=== PATIENT | female | born 1960 | race Caucasian/White ===

== ENCOUNTER → 2017-10-21 | Outpatient (CLI) | payer BC ==
[~2017-10-21] MED LIST: ACHD5005 PO; ASP325T PO; BUPR100T7 PO; CHOL10003 PO; CHOLESTEROL MED; CITA20TA12 PO; CPR500T PO; CYCL10TA9 PO; IBUP-792 PO; KETO-22 PO; NAPR-243 PO; PHEN37.555 PO; PRAV10TA PO; PREVASTATIN PO; SIMV20TA3 PO; TMSL.4C PO; VENL50TA PO; VNL37.5T PO; VNL75T PO
--- NOTE | 2017-10-21 14:32 | Diagnostic Imaging Report ---
EXAMINATION: Pelvic ultrasound. INDICATION: Pelvic pain There are no prior studies available for comparison. The uterus is not enlarged measuring 4.7 x 3.1 CM. The endometrial lining is not thickened measuring 3 MM. There is no focal mass involving the uterus to suggest a fibroid. The left ovary was identified and was unremarkable. There is good blood flow to the left ovary and there is no sign of torsion. The right ovary could not be visualized. There is no pelvic mass or free fluid collection noted. IMPRESSION: 1. There is no evidence for an acute pelvic abnormality. 2. The right ovary was not identified. Dictated by: Dictated on workstation # [id number]
== END ==
LOC: RAD 09:49
PROVIDERS: ATTEND Family Medicine
DX: R10.2 Pelvic and perineal pain (principal)
CPT/HCPCS: 76830; 76856

== ENCOUNTER → 2017-12-05 | Outpatient (CLI) | payer BC ==
[~2017-12-05] MED LIST changes: +CATHETER FLUSH 10 ML SYR IV PRN; +IOHEXOL 350 MG/ML 100 ML (OMNIPAQUE 350) VIAL IV ONE; +NS 250 ML (IVPB) BAG IV ONE
[2017-12-05 09:26] LABS: CREATININE SERUM 1.08 MG/DL (0.60-1.30)
--- NOTE | 2017-12-05 11:02 | Diagnostic Imaging Report ---
PROCEDURE: CT abdomen and pelvis with contrast. TECHNIQUE: Multiple contiguous axial images were obtained through the abdomen and pelvis after administration of intravenous contrast. INDICATION: Left lower quadrant pain for six months. COMPARISON: Comparison is made with prior noncontrast CT from 08/26/2012. FINDINGS: Lung bases demonstrates stable nodular density in the right lower lobe. The liver demonstrates generalized low density suggestive of hepatic steatosis. No discrete liver mass is seen. Gallbladder is unremarkable. The pancreas and spleen are unremarkable. No adrenal mass is detected. Kidneys are unremarkable apart from renal sinus cysts. Aorta is nonaneurysmal. The visualized small and large bowel loops are normal caliber. No obstruction is seen. No inflammatory process is detected. There is no free fluid or loculated collection. The uterus is unremarkable. Bladder is decompressed. IMPRESSION: Essentially unremarkable CT of the abdomen and pelvis. No acute abnormality is detected. Dictated by: Dictated on workstation # [id number]
== END ==
LOC: RAD 08:39
PROVIDERS: ATTEND Family Medicine
DX: R10.32 Left lower quadrant pain (principal)
CPT/HCPCS: 36415; 74177; 82565; 84520

== ENCOUNTER 2019-06-03 15:27 | Outpatient (RCR) | payer BC ==
[~2019-06-03 15:27] MED LIST changes: -CATHETER FLUSH 10 ML SYR IV PRN; -IOHEXOL 350 MG/ML 100 ML (OMNIPAQUE 350) VIAL IV ONE; -NS 250 ML (IVPB) BAG IV ONE
== END 2019-07-13 11:41 | disposition home or self-care (01) ==
PROVIDERS: ATTEND Family Medicine
DX: M25.512 Pain in left shoulder (principal); M25.812 Other specified joint disorders, left shoulder

== ENCOUNTER 2021-10-30 19:40 | Emergency (ER) | payer OTHER, BC ==
[~2021-10-30] VITALS: Ht 165 cm; Wt 95.3 kg
[2021-10-30 20:50] VITALS: BP 129/89
--- NOTE | 2021-10-30 20:56 | ED Upper Extremity ---
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 Uncertain of when her last tetanus vaccine was. Onset: just prior to arrival Severity: moderate Pain/Injury Location: right 2nd finger Method of Injury: direct blow Modifying Factors: Worse With Movement Allergies and Home Medications Allergies Coded Allergies: Penicillins (Verified Allergy, Unknown, 09/19/15) Patient Home Medication List Home Medication List Reviewed: Yes Bupropion HCl (Wellbutrin Sr) 100 Mg Tablet.er, 100 MG PO DAILY, (Reported) Entered as Reported by: SELAM PATEL on 09/18/15 1219 Citalopram Hydrobromide (Celexa) 20 Mg Tablet, 20 MG PO HS, (Reported) Entered as Reported by: TRES CAMERON on 06/24/14 1928 Pravastatin Sodium (Pravastatin Sodium) 10 Mg Tablet, 20 MG PO HS, (Reported) Entered as Reported by: TRES CAMERON on 06/24/14 193 Review of Systems Constitutional: see HPI EENTM: see HPI Respiratory: no symptoms reported Cardiovascular: no symptoms reported Genitourinary: no symptoms reported Musculoskeletal: no symptoms reported Skin: no symptoms reported Psychiatric/Neurological: No Symptoms Reported Past Vdppshl-Ogukyd-Hkzelu Hx Past Medical History High Cholesterol Reproductive Disorders: No Gastroesophageal Reflux Anxiety, Depression Physical Exam Vital Signs Capillary Refill : Height, Weight, BMI Height: 5'5.00" Weight: 210lbs. 3.2oz. 95.793698pd; 34.94 BMI Method:Stated General Appearance: WD/WN, no apparent distress Neck: non-tender, full range of motion Respiratory: no respiratory distress, no accessory muscle use Shoulder: normal inspection, non-tender Elbow/Forearm: normal inspection, non-tender Wrist: Yes normal inspection, Yes non-tender Hand: Right, laceration (There is a superficial laceration to the distal pad of the right pointer finger without active bleeding.) Neurologic/Psychiatric: alert, normal mood/affect, oriented x 3 Skin: normal color, warm/dry Departure Communication (Admissions) Area cleansed with chlorhexidine/saline solution then skin affix was applied. Then a Band-Aid. Impression Primary Impression: Fingertip laceration Disposition: 01 HOME, SELF-CARE Condition: Stable Departure-Patient Inst. Decision time for Depature: 20:55 Referrals: AMANDA RAMIREZ DO (PCP) Primary Care Physician Patient Instructions: Laceration Repair With Glue (DC) Add. Discharge Instructions: 1. Try to keep this dry as much as possible however some water running over it is okay. Just do not soak it in water. Return to ER for any concerns. JANNETTE SANDS APRN Oct 30, 2021 20:56
[2021-10-30] MEDS ORDERED: TETANUS,DIPTH,PERTUSS P/F (BOOSTRIX) 0.5 ML VIAL IM ONE (21:00)
== END 2021-10-30 21:20 | disposition home or self-care (01) ==
LOC: EDUNIT# 19:40 → ER 19:44
DX: S61.210A Laceration without foreign body of right index finger without damage to nail, initial encounter (principal); Z23 Encounter for immunization; W27.4XXA Contact with kitchen utensil, initial encounter
CPT/HCPCS: 90471; 90715; 99284

== ENCOUNTER 2022-07-02 00:43 | Emergency (ER) | payer BC ==
[~2022-07-02] VITALS: Ht 162.6 cm; Wt 95.3 kg
[2022-07-02] MEDS ORDERED: KETOROLAC 30 MG/ML VIAL IVP STA (01:06)
[2022-07-02 01:12] LABS: BASOPHILS % (AUTO) 0 % (0-10); EOSINOPHILS % (AUTO) 0 % (0-10); HEMATOCRIT 43 % (35-52); LYMPHOCYTES # (AUTO) 1.5 10^3/uL (1.0-4.0); LYMPHOCYTES % (AUTO) 14 % (12-44); MEAN CORPUSCULAR HEMOGLOBIN 30 pg (25-34); MEAN CORPUSCULAR HGB CONC 33 g/dL (32-36); MEAN CORPUSCULAR VOLUME 91 fL (80-99); MEAN PLATELET VOLUME 9.7 fL (9.0-12.2); MONOCYTES # (AUTO) 0.9 10^3/uL (0.0-1.0); MONOCYTES % (AUTO) 8 % (0-12); NEUTROPHILS # (AUTO) 8.5 10^3/uL (1.8-7.8); NEUTROPHILS % (AUTO) 77 % (42-75); PLATELET COUNT 238 10^3/uL (130-400); WHITE BLOOD COUNT 10.9 10^3/uL (4.3-11.0)
--- NOTE | 2022-07-02 01:12 | ED Abdominal Pain ---
General Chief Complaint: Abdominal/GI Problems Stated Complaint: POSS KIDNEY STONE,LEFT SIDE Source of Information: Patient History of Present Illness Date Seen by Provider: Jul 02, 2022 Time Seen by Provider: 00:53 Initial Comments PT ARRIVES VIA POV FROM HOME STATES SHE THINKS SHE IS PASSING A KIDNEY STONE C/O LEFT FLANK PAIN SINCE 1699, AND DIFFICULTY URINATING PAIN IS CONSTANT, NOTHING WORSENS OR IMPROVES PAIN HAS PRESSURE OVER BLADDER AND URGENCY, BUT IS UNABLE TO VOID NO NAUSEA/VOMITING NO FEVER HAS HISTORY OF KIDNEY STONES, NO INTERVENTIONS. STATES SHE HAS NOT SEEN A UROLOGIST, PASSED THEM ON HER OWN IN THE PAST PT TESTED + FOR INFLUENZA ON Friday06/30/22 AT [facility], RX FOR TAMIFLU GIVEN GOT HER FLU SHOT ON Friday06/27/22 PT HAS HAD COVID-19 VACCINE X 3. LAST ONE 07/2021. PCP:DR. RAMIREZ Allergies and Home Medications Allergies Coded Allergies: Penicillins (Verified Allergy, Unknown, 09/19/15) Patient Home Medication List Home Medication List Reviewed: Yes Bupropion HCl (Wellbutrin Sr) 100 Mg Tablet.er, 100 MG PO DAILY, (Reported) Entered as Reported by: SELAM PATEL on 09/18/15 1219 Ciprofloxacin HCl (Ciprofloxacin HCl) 500 Mg Tablet, 500 MG PO BID Prescribed by: SHAE SAMPSON on 07/02/22217 Citalopram Hydrobromide (Celexa) 20 Mg Tablet, 20 MG PO HS, (Reported) Entered as Reported by: TRES CAMERON on 06/24/14 1928 Hydrocodone/Acetaminophen (Hydrocodone-Acetamin 5-325 mg) 5 Mg-325 Mg Tablet, 1 EACH PO Q4-6 HOURS PRN for PAIN Prescribed by: SHAE SAMPSON on 07/02/22218 Ketorolac Tromethamine (Ketorolac Tromethamine) 10 Mg Tablet, 10 MG PO Q6H Prescribed by: SHAE SAMPSON on 07/02/22217 Ondansetron (Ondansetron Odt) 4 Mg Tab.rapdis, 4 MG PO Q4H Prescribed by: SHAE SAMPSON on 07/02/22217 Pravastatin Sodium (Pravastatin Sodium) 10 Mg Tablet, 20 MG PO HS, (Reported) Entered as Reported by: TRES CAMERON on 06/24/141932 Tamsulosin HCl (Flomax) 0.4 Mg Cap, 0.4 MG PO DAILY Prescribed by: SHAE SAMPSON on 07/02/22217 Review of Systems Review of Systems Constitutional: see HPI, malaise EENTM: See HPI, Nose Congestion Respiratory: Cough; Denies Shortness of Air Cardiovascular: No Symptoms Reported Gastrointestinal: See HPI, Abdominal Pain; Denies Nausea, Denies Vomiting Genitourinary: See HPI, Flank Pain, Urgency Musculoskeletal: see HPI Skin: no symptoms reported Psychiatric/Neurological: No Symptoms Reported Endocrine: No Symptoms Reported Hematologic/Lymphatic: No Symptoms Reported Past Duerzdi-Qufhdt-Wucyzz Hx Patient Social History Tobacco Use?: Yes Tobacco type used: Cigarettes Smoking Status: Former Smoker Substance use?: No Alcohol Use?: No Immunizations Up To Date First/Initial COVID19 Vaccinat: 12/29 Second COVID19 Vaccination Javid: 01/29 Third COVID19 Vaccination Date: 07/31 Past Medical History Surgeries: No Respiratory: No Cardiac: Yes High Cholesterol, Hypertension Neurological: No Reproductive Disorders: No VICE PRINCIPAL History: Menopausal Genitourinary: Yes Kidney Stones Gastrointestinal: Yes Gastroesophageal Reflux Musculoskeletal: No Endocrine: Yes Diabetes, Non-Insulin dep HEENT: No Cancer: No Psychosocial: Yes Anxiety, Depression Integumentary: No Blood Disorders: No Physical Exam Vital Signs Vital Signs - First Documented 07/02/22 00:53 Temp 36.5 Pulse 77 Resp 16 B/P (MAP) 146/83 (104) Pulse Ox 98 O2 Delivery Room Air Capillary Refill : Height/Weight/BMI Height: 5'5.00" Weight: 210lbs. 3.2oz. 95.173540ez; 35.00 BMI Method:Stated General Appearance: WD/WN, no apparent distress, obese HEENT: PERRL/EOMI Neck: normal inspection Respiratory: normal breath sounds, no respiratory distress, no accessory muscle use Cardiovascular: normal peripheral pulses, regular rate, rhythm, no murmur Gastrointestinal: soft, tenderness (MILD SUPRAPUBIC TENDERNESS. NO FLANK TENDERNESS. 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, no motor/sensory deficits, alert, normal mood/affect, oriented x 3 Skin: normal color, warm/dry; No rash Progress/Results/Core Measures Results/Orders Lab Results Laboratory Tests Test 07/02/22 00:59 07/02/22 01:03 Range/Units Urine Color YELLOW Urine Clarity CLEAR Urine pH 5.0 5-9 Urine Specific [place] >=1.030 1.016-1.022 Urine Protein NEGATIVE NEGATIVE Urine Glucose (UA) NEGATIVE NEGATIVE Urine Ketones NEGATIVE NEGATIVE Urine Nitrite NEGATIVE NEGATIVE Urine Bilirubin NEGATIVE NEGATIVE Urine Urobilinogen 0.2 < = 1.0 MG/DL Urine Leukocyte Esterase TRACE H NEGATIVE Urine RBC (Auto) 3+ H NEGATIVE Urine RBC 25-50 H /HPF Urine WBC 5-10 H /HPF Urine Crystals PRESENT H /LPF Urine Uric Acid Crystals MODERATE H /LPF Urine Bacteria TRACE /HPF Urine Casts NONE /LPF Urine Mucus MODERATE H /LPF Urine Culture Indicated YES White Blood Count 10.9 4.3-11.0 10^3/uL Red Blood Count 4.71 3.80-5.11 10^6/uL Hemoglobin 14.0 11.5-16.0 g/dL Hematocrit 43 35-52 % Mean Corpuscular Volume 91 80-99 fL Mean Corpuscular Hemoglobin 30 25-34 pg Mean Corpuscular Hemoglobin Concent 33 32-36 g/dL Red Cell Distribution Width 12.4 10.0-14.5 % Platelet Count 238 130-400 10^3/uL Mean Platelet Volume 9.7 9.0-12.2 fL Immature Granulocyte % (Auto) 0 % Neutrophils (%) (Auto) 77 H 42-75 % Lymphocytes (%) (Auto) 14 12-44 % Monocytes (%) (Auto) 8 0-12 % Eosinophils (%) (Auto) 0 0-10 % Basophils (%) (Auto) 0 0-10 % Neutrophils # (Auto) 8.5 H 1.8-7.8 10^3/uL Lymphocytes # (Auto) 1.5 1.0-4.0 10^3/uL Monocytes # (Auto) 0.9 0.0-1.0 10^3/uL Eosinophils # (Auto) 0.0 0.0-0.3 10^3/uL Basophils # (Auto) 0.0 0.0-0.1 10^3/uL Immature Granulocyte # (Auto) 0.0 0.0-0.1 10^3/uL Sodium Level 136 135-145 MMOL/L Potassium Level 3.9 3.6-5.0 MMOL/L Chloride Level 103 98-107 MMOL/L Carbon Dioxide Level 21 21-32 MMOL/L Anion Gap 12 5-14 MMOL/L Blood Urea Nitrogen 25 H 7-18 MG/DL Creatinine 1.19 0.60-1.30 MG/DL Estimat Glomerular Filtration Rate 52 BUN/Creatinine Ratio 21 Glucose Level 150 H 70-105 MG/DL Calcium Level 9.8 8.5-10.1 MG/DL Corrected Calcium 9.4 8.5-10.1 MG/DL Total Bilirubin 0.3 0.1-1.0 MG/DL Aspartate Amino Transf (AST/SGOT) 26 5-34 U/L Alanine Aminotransferase (ALT/SGPT) 28 0-55 U/L Alkaline Phosphatase 61 40-136 U/L Total Protein 7.9 6.4-8.2 GM/DL Albumin 4.5 3.2-4.5 GM/DL Amylase Level 37 25-125 U/L Lipase 14 8-78 U/L My Orders Orders - SHAE SAMPSON DO Ed Iv/Invasive Line Start (07/02/22 01:06) Ct Abd/Pelvis Wo(Kidney Stone) (07/02/22 01:06) Abdomen/Kub 1view (07/02/22 01:06) Amylase (07/02/22 01:06) Cbc With Automated Diff (07/02/22 01:06) Comprehensive Metabolic Panel (07/02/22 01:06) Lipase (07/02/22 01:06) Ua Culture If Indicated (07/02/22 01:06) Ed Iv/Invasive Line Start (07/02/22 01:06) Ns Iv 1000 Ml (Sodium Chloride 0.9%) (07/02/22 01:15) Ketorolac Injection (Toradol Injection) (07/02/22 01:06) Urine Culture (07/02/22 00:59) Tamsulosin Capsule (Flomax Capsule) (07/02/22 02:30) Ciprofloxacin Tablet (Cipro Tablet) (07/02/22 02:30) Rx-Hydrocodone/Apap 5-325 Mg (Rx-Vicodin (07/02/22 02:30) Rx-Ondansetron Po (Rx-Zofran Po) (07/02/22 02:19) Medications Given in ED Current Medications Medications Dose Ordered Sig/Gris Route Start Time Stop Time Status Last Admin Dose Admin Acetaminophen/ Hydrocodone Bitart 1 ea Q4H PRN PO 07/02/22 02:30 07/02/22 02:32 DC 07/02/22 02:29 1 EA Vital Signs/I&O 07/02/22 07/02/22 00:53 02:30 Temp 36.5 36.5 Pulse 77 73 Resp 16 16 B/P (MAP) 146/83 (104) 122/73 Pulse Ox 98 98 O2 Delivery Room Air Room Air Progress Progress Note : Progress Note PPE WORN GIVEN: -IV FLUIDS -TORADOL--PAIN RELIEVED WITH TORADOL ALSO GAVE FLOMAX AND CIPRO UNEVENTFUL ER STAY. Diagnostic Imaging Comments KUB--NO ACUTE PROCESS, PENDING RADIOLOGIST REVIEW CT ABDOMEN/PELVIS--PER [facility] VIA FAX AT 0208 -3 MM DISTAL LEFT URETERAL STONE, WITHIN 1 CM OF LEFT UVJ, WITH MILD LEFT HYDROURETERONEPHROSIS, LEFT PERINEPHRIC ADN PERIURETERAL FAT STRANDING. Reviewed: Reviewed by Me Departure Impression Primary Impression: Calculus of distal left ureter Additional Impression: Urinary tract infection Disposition: HOME, SELF-CARE Condition: Improved Departure-Patient Inst. Decision time for Depature: 02:10 Referrals: AMANDA RAMIREZ DO (PCP/Family) Primary Care Physician SOLANGE BORGES MD Patient Instructions: How to Strain Your Urine, Kidney Stones (DC) Add. Discharge Instructions: STRAIN ALL URINE--RETURN ANY STONES TO DR. BORGES'S OFFICE LOTS OF CLEAR LIQUIDS FOLLOW UP WITH DR. BORGES THIS WEEK FOR FURTHER CARE--CALL IN THE MORNING TO SCHEDULE APPOINTMENT All discharge instructions reviewed with patient and/or family. Voiced understanding. Scripts Ondansetron (Ondansetron Odt) 4 Mg Tab.rapdis 4 MG PO Q4H for Nausea/Vomiting, #10 TAB Prov: SHAE SAMPSON DO 07/02/22 Ketorolac Tromethamine (Ketorolac Tromethamine) 10 Mg Tablet 10 MG PO Q6H for Pain, #15 TAB Prov: ADRIÁNVICKIA K DO 07/02/22 Hydrocodone/Acetaminophen (Hydrocodone-Acetamin 5-325 mg) 5 Mg-325 Mg Tablet 1 EACH PO Q4-6 HOURS PRN for PAIN, #20 TAB Prov: SHAE SAMPSON DO 07/02/22 Tamsulosin HCl (Flomax) 0.4 Mg Cap 0.4 MG PO DAILY, #10 CAP Prov: SHAE SAMPSON DO 07/02/22 Ciprofloxacin HCl (Ciprofloxacin HCl) 500 Mg Tablet 500 MG PO BID, #14 TAB Prov: SHAE SAMPSON DO 07/02/22 SHAE SAMPSON DO Jul 02, 2022 01:12
[2022-07-02] MEDS ORDERED: NS IV 1000 ML 1,000 ML IV SCH (01:15)
[2022-07-02 01:17] LABS: BILIRUBIN,URINE NEGATIVE (NEGATIVE); CLARITY,URINE CLEAR; COLOR,URINE YELLOW; GLUCOSE, URINE (UA) NEGATIVE (NEGATIVE); KETONES,URINE NEGATIVE (NEGATIVE); LEUKOCYTE ESTERASE ,URINE TRACE (NEGATIVE); NITRITE,URINE NEGATIVE (NEGATIVE); PROTEIN,URINE NEGATIVE (NEGATIVE)
[2022-07-02 01:27] LABS: BACTERIA,URINE TRACE /HPF; RBC,URINE 25-50 /HPF; URIC ACID CRYSTALS,URINE MODERATE /LPF
[2022-07-02 01:33] LABS: ALBUMIN 4.5 GM/DL (3.2-4.5); POTASSIUM 3.9 MMOL/L (3.6-5.0)
[2022-07-02 01:34] LABS: CALCIUM 9.8 MG/DL (8.5-10.1)
[2022-07-02 01:36] LABS: TOTAL PROTEIN 7.9 GM/DL (6.4-8.2)
[2022-07-02 01:37] LABS: BILIRUBIN,TOTAL 0.3 MG/DL (0.1-1.0)
[2022-07-02 01:39] LABS: CREATININE SERUM 1.19 MG/DL (0.60-1.30)
[2022-07-02] MEDS ORDERED: CIPR500T5 PO (02:18)
[2022-07-02] MEDS ORDERED: KETO10TA PO (02:18)
[2022-07-02] MEDS ORDERED: ONDA4TAB11 PO (02:18)
[2022-07-02] MEDS ORDERED: TMSL.4C PO (02:18)
[2022-07-02] MEDS ORDERED: ACHD5005 PO (02:18)
[2022-07-02] MEDS ORDERED: RX-ONDANSETRON 4 MG ODT (ZOFRAN) PPK #4 PO STA (02:19)
[2022-07-02 02:30] VITALS: BP 122/73
[2022-07-02] MEDS ORDERED: CIPROFLOXACIN 500 MG (CIPRO) TABLET PO SCH (02:30)
[2022-07-02] MEDS ORDERED: TAMSULOSIN 0.4 MG (FLOMAX) CAP PO SCH (02:30)
--- NOTE | 2022-07-02 06:41 | Diagnostic Imaging Report ---
PROCEDURE: CT urinary tract, rule out kidney stone. TECHNIQUE: Multiple contiguous axial images were obtained through the abdomen and pelvis without the use of intravenous contrast. Auto Exposure Controls were utilized during the CT exam to meet ALARA standards for radiation dose reduction. INDICATION: Left-sided flank pain. Abdominal pain. COMPARISON: 12/05/2017. FINDINGS: The heart is unremarkable. The lung bases are clear. Calculus is seen in the distal left ureter measuring 3 mm just proximal to the left UVJ. There is mild to moderate left-sided hydroureteronephrosis. Left-sided fat stranding is seen. Parapelvic cysts are seen on the right. No hydronephrosis on the right. The liver, spleen, pancreas, and adrenal glands have a normal appearance. The gallbladder is unremarkable. There is no pathologically enlarged mesenteric or retroperitoneal adenopathy. The bowel loops are nondilated. The appendix is visualized in the right lower quadrant and has a normal appearance. There is no free fluid or free air. No acute osseous abnormalities. The urinary bladder is decompressed. There is no free air, loculated collection, or adenopathy in the pelvis. IMPRESSION: 1. Calculus in the distal left ureter measuring 3 mm with mild to moderate left-sided hydroureteronephrosis. Agree with overnight report. Dictated by: Dictated on workstation # [id number]
--- NOTE | 2022-07-02 06:59 | Diagnostic Imaging Report ---
REASON FOR EXAM: Abdominal pain. Left-sided flank pain. COMPARISON: 12/05/2017. TECHNIQUE: 2 views of the abdomen FINDINGS: The bowel gas pattern is nondistended. No large collection of free intraperitoneal air is seen. Scattered small amounts of gas and fecal material are present in the colon. The calculus in the distal left ureter seen on CT is not visualized on this exam. The osseous structures are age-appropriate. IMPRESSION: No evidence of bowel obstruction or large collection of free intraperitoneal air. Dictated by: Dictated on workstation # [id number]
== END 2022-07-02 02:31 | disposition home or self-care (01) ==
LOC: EDUNIT# 00:43 → ER 00:46
DX: N13.6 Pyonephrosis (principal); F17.210 Nicotine dependence, cigarettes, uncomplicated; Z88.0 Allergy status to penicillin
CPT/HCPCS: 36415; 74018; 74176; 80053; 81000; 82150; 83690; 85025; 87088